=== PATIENT | male | born 1935 | race Caucasian/White ===

== ENCOUNTER 2016-02-26 13:58 | Emergency (ER) | payer OTHER ==
[~2016-02-26] VITALS: Ht 182.9 cm; Wt 106.6 kg
[~2016-02-26 13:58] MED LIST: <VITAMIN> A + D1 APP TOP; ACEPHEN650 MG PR; ACIDOPHILUS1 CAP PO; ALBUTEROL SULFAT3 M1 INH; ALBUTEROL2.5 MG/3 M INH; AMLODIPINE BESYL5 M1 PO; AMLODIPINE10 MG PO; ATORVASTATIN CA40 MG PO; AUGMENTIN 875-1 EACH PO; AUGMENTIN PO; BACTRIM DS 8001 TAB PO; COUMADIN6 M1 PO; CYCLOBENZAPRINE5 M2 PO; DEMADEX10 M1 PO; DEMADEX20 M1 PO; DILAUDID 4 MG TA4 MG PO; DSS100 MG PO; DULCOLAX10 MG PR; Desitin TOP; EDARBYCLOR 40 M1 TAB PO; ELIQUIS5 M1 PO; ELIQUIS5 MG PO; FERATAB300 MG PO; FERROUS SULFAT325 M3 PO; FLEET ENEMA 131 UNIT RC; FLOMAX(MONOGRA0.4 MG PO; FOLIC ACID 1 MG PO; FUROSEMIDE40 MG PO; GABAPENTIN300 M2 PO; GUAIFENESIN ER600 MG PO; KEFLEX500 M1 PO; KLOR-CON M2020 ME1 PO; LASIX20 MG PO; LASIX40 M1 PO; LEVAQUIN500 M1 PO; LOPRESSOR 25MG25 MG PO; LOPRESSOR50 MG PO; LUBRIDERM DAIL177 ML TOP; METOPROLOL TARTRATE PO; MILK OF MAGNESI30 ML PO; MIRALAX17 GM PO; MS CONTIN30 MG PO; MYSOLINE50 M1 PO; NEURONTIN300 MG PO; NORVASC 5MG TAB5 MG PO; OMEPRAZOLE; OXYCODONE5 MG PO; OXYCONTIN30 MG PO; PERCOCET 325 MG1 TA2 PO; POTASSIUM CHLORIDE 20 MEQ; PREDNISONE10 M2 PO; PRILOSEC OTC20 M1 PO; PROS5 PO; SENOKOT8.6 M1 PO; SPIRIVA18 MCG INH; SYMBICORT 16010.2 GM; SYMBICORT 16010.2 GM INH; TORSEMIDE 10 MG; TRAMADOL HCL50 M1 PO; TYLENOL PO; TYLENOL TAB 32325 MG PO; TYLENOL WITH C1 EACH PO; TYLENOL325 M1 PO; VALIUM2 M1 PO; VITAMIN C250 M1 PO; VYTORIN 10 MG-21 TAB PO; WARFARIN 5 MG; WARFARIN SODIUM5 M1 PO; XARELTO20 MG PO; ZINC SULFATE 2220 MG PO
--- NOTE | 2016-02-26 14:40 | ED NECK/BACK PAIN COMPLAINT ---
History of Present Illness General Chief Complaint: Low Back Pain/Injury Stated Complaint: INCREASED BACK PAIN Source: patient Exam Limitations: no limitations Vital Signs & Intake/Output Vital Signs & Intake/Output Vital Signs Date Time Temp Pulse Resp B/P Pulse O2 O2 Flow FiO2 Ox Delivery Rate 02/25 1648 97.8 70 18 114/76 97 Room Air 02/25 1401 97.2 63 20 156/93 94 Room Air Allergies Coded Allergies: sulfamethoxazole (From BACTRIM) (UNKNOWN 05/13/15) trimethoprim (From BACTRIM) (UNKNOWN 05/13/15) Reconcile Medications Acetaminophen (Tylenol) 325 MG TABLET 2 TAB PO Q4 HRS NEEDED PRN PAIN ( Reported) Amlodipine Besylate 5 MG TABLET 5 MG PO DAILY HIGH BLOOD PRESSURE Apixaban (Eliquis) 5 MG TABLET 1 TAB PO BID BLOOD THINNER (Reported) Atorvastatin Calcium (Lipitor) 40 MG TABLET 1 TAB PO DAILY CHOLESTEROL ( Reported) Budesonide/Formoterol Fumarate (Symbicort 160-4.5 Mcg Inhaler) 160 MCG-4.5 MCG/ ACTUATION HFA.AER.AD 2 PUF INH BID BREATHING PROBLEMS (Reported) Diazepam (Valium) 5 MG TABLET 1 TAB PO BIDP PRN muscle spasms Diazepam (Valium) 2 MG TABLET 1 TAB PO BID spasms Gabapentin 300 MG CAPSULE 1 CAP PO TID (Reported) Potassium Chloride (Klor-Con M20) 20 MEQ TAB.ER.PRT 1 TAB PO DAILY SUPPLEMENT (Reported) Primidone (Mysoline) 50 MG TABLET 1 TAB PO TID UNKNOWN (Reported) Tiotropium [place] (Spiriva) 18 MCG CAP.W.DEV 1 PUF INH DAILY copd Torsemide (Demadex) 20 MG TABLET 2 TAB PO EOD WATER PILL (Reported) Torsemide (Demadex) 10 MG TABLET 3 TAB PO EOD WATER PILL (Reported) Tramadol HCl (Ultram) 50 MG TABLET 1-2 TAB PO Q6P PRN PAIN Tramadol HCl 50 MG TABLET 1-2 TAB PO Q8P PRN pain Triage Note: BIBA FROM [facility], C/O R SIDED NECKCK PAIN AND STIFFNESS SINCE LAST NIGHT. STATES HE SLEPT IN HIS RECLINER ALL NIGHT. DENIES SOB OR DIFFICULTY SWALLOWING. Triage Nurses Notes Reviewed? yes HPI: 80-year-old male arrived by ambulance to room 8 for evaluation of right sided neck pain. He reports that the pain started last night with unknown context. He did sleep in his recliner last night and believes it could be related to that. He has been seen in the emergency department twice within the past few months for the same thing. He has been given tramadol and Valium for the pain. He describes the pain has a tightness in the right side of his neck like a spasm. He denies any head or back pain and he denies any chest or abdominal pain. (MARYANN BACA APRN) Past History Travel History Traveled to [place] past 21 day No Medical History Any Pertinent Medical History? 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 No (MARYANN BACA APRN) Review of Systems Review of Systems Constitutional: Reports: no symptoms. Eyes: Reports: no symptoms. Ears, Nose, Throat, Mouth: Reports: no symptoms. Respiratory: Reports: no symptoms. Cardiovascular: Reports: no symptoms. Gastrointestinal/Abdominal: Reports: no symptoms. Musculoskeletal: Reports: neck pain. Skin: Reports: no symptoms. Neurological/Psychological: Reports: no symptoms. All Other Systems: Reviewed and Negative (MARYANN BACA APRN) Physical Exam Physical Exam General Appearance: well developed/nourished, mild distress Head: atraumatic Eyes: Bilateral: PERRL, EOMI. Ears, Nose, Throat, Mouth: hearing grossly normal Neck: muscle spasm (right side) Respiratory: normal breath sounds Cardiovascular: regular rate/rhythm Gastrointestinal: soft, non-tender Back: normal inspection Extremities: normal range of motion Neurologic/Psych: awake, alert, oriented x 3, normal mood/affect Skin: intact, normal color, warm/dry (MARYANN BACA APRN) Progress Differential Diagnosis: myofascial strain, radiculopathy, cervical strain Plan of Care: Current Medications Sig/Iain Start time Last Medication Dose Stop Time Status Admin Diazepam 5 MG ONCE ONE 02/25 1445 UNVr (Valium) 02/25 1446 Ketorolac 30 MG ONCE ONE 02/25 1445 UNVr Tromethamine 02/25 1446 (Toradol) Comments: Patient feels much better after Toradol and Valium. Instructed that he needs to follow up with primary care provider for continued muscle strain in his neck. (MARYANN BACA APRN) Departure Departure Time of Disposition: 1650 Disposition: HOME OR SELF CARE Condition: Stable Clinical Impression Primary Impression: Cervical strain Qualifiers: Encounter type: subsequent encounter Qualified Code: S16.1XXD - Strain of muscle, fascia and tendon at neck level, subsequent encounter Referrals: NICOLE HILLS,CATRACHITA Galvin (PCP/Family) Additional Instructions: Please follow up with Dr. Higuera for this continued cervical strain that you have been having over the past few months. Tramadol twice a day has needed for pain and Valium 3 times a day has needed for muscle spasm of the neck. Please do not drive taking this medication. Be careful because it can make him very drowsy. Departure Forms: Customer Survey General Discharge Information Prescriptions: Current Visit Scripts Diazepam (Valium) 1 TAB PO BIDP PRN muscle spasms #14 TAB Tramadol HCl (Ultram) 1-2 TAB PO Q6P PRN PAIN #20 TAB (MARYANN BACA APRN)
[2016-02-26] MEDS ORDERED: VALIUM5 M2 PO ×2 (16:43→17:08)
[2016-02-26] MEDS ORDERED: TRAMADOL HCL50 M1 PO (16:43)
[2016-02-26 16:48] VITALS: BP 114/76
[2016-02-26] MEDS ORDERED: ULTRAM50 M1 PO (17:08)
== END 2016-02-26 17:11 ==
LOC: ERH 13:58
DX: S16.1XXA Strain of muscle, fascia and tendon at neck level, initial encounter (principal); X58.XXXA Exposure to other specified factors, initial encounter
CPT/HCPCS: 96372; J1885; J3360

== ENCOUNTER 2016-08-07 09:45 | Inpatient (IN) | payer OTHER ==
[~2016-08-07] VITALS: Ht 180.3 cm; Wt 105.7 kg
[~2016-08-07 09:45] MED LIST changes: -ATORVASTATIN CA40 MG PO; +LIPITOR40 M1 PO; +ULTRAM50 M1 PO; +VALIUM5 M2 PO
--- NOTE | 2016-08-07 09:55 | NUR ---
PT TO ED FOR ?ADMISSION FOR A UTI. PT HAS A PRESCRIPTION FROM DR RIVERA FOR PT TO BE ADMITTED FOR RECURRENT UTI'S. PT STATES HE HAS BURNING WITH URINATION. DENIES ANY PAIN. AFEBRILE IN TRIAGE. STATES HAS BEEN GOING FOR ABOUT X1 MONTH.
--- NOTE | 2016-08-07 11:12 | ED GI/GU/ABDOMINAL COMPLAINT ---
History of Present Illness General Chief Complaint: Male Genitourinary Problems Stated Complaint: UTI Source: patient, family, old records Exam Limitations: no limitations Allergies Coded Allergies: sulfamethoxazole (From BACTRIM) (UNKNOWN 05/13/15) trimethoprim (From BACTRIM) (UNKNOWN 05/13/15) Reconcile Medications Acetaminophen (Tylenol) 325 MG TABLET 2 TAB PO Q4 HRS NEEDED PRN PAIN ( Reported) Amlodipine Besylate 5 MG TABLET 5 MG PO DAILY HIGH BLOOD PRESSURE Apixaban (Eliquis) 5 MG TABLET 1 TAB PO BID BLOOD THINNER (Reported) Atorvastatin Calcium (Lipitor) 40 MG TABLET 1 TAB PO DAILY CHOLESTEROL ( Reported) Budesonide/Formoterol Fumarate (Symbicort 160-4.5 Mcg Inhaler) 160 MCG-4.5 MCG/ ACTUATION HFA.AER.AD 2 PUF INH BID BREATHING PROBLEMS (Reported) Cetirizine HCl (Zyrtec) 10 MG TABLET 1 TAB PO DAILY ALLERGIES (Reported) Docusate Sodium (Colace) 100 MG CAPSULE 1 CAP PO BID CONSTIPATION (Reported) Gabapentin 300 MG CAPSULE 1 CAP PO TID (Reported) Potassium Chloride (Klor-Con M20) 20 MEQ TAB.ER.PRT 1 TAB PO DAILY SUPPLEMENT (Reported) Primidone (Mysoline) 50 MG TABLET 1 TAB PO TID UNKNOWN (Reported) Tiotropium [place] (Spiriva) 18 MCG CAP.W.DEV 1 PUF INH DAILY copd Torsemide (Demadex) 20 MG TABLET 2 TAB PO DAILY WATER PILL (Reported) Tramadol HCl 50 MG TABLET 1 TAB PO BID PAIN (Reported) Triage Note: PT TO ED FOR ?ADMISSION FOR A UTI. PT HAS A PRESCRIPTION FROM DR RIVERA FOR PT TO BE ADMITTED FOR RECURRENT UTI'S. PT STATES HE HAS BURNING WITH URINATION. DENIES ANY PAIN. AFEBRILE IN TRIAGE. STATES HAS BEEN GOING FOR ABOUT X1 MONTH. Triage Nurses Notes Reviewed? yes Onset: Abrupt Duration: week(s): (4), constant Timing: recent history Quality/Severity: burning Severity Numbers: 6 Location: urethral Radiation: no radiation Activities at Onset: none Prior Abdominal Problems: none No Modifying Factors: none Associated Symptoms: denies HPI: This is an 81-year-old male with history of A. fib presents sent in by his primary care physician for admission. The patient states that he's had dysuria frequency for the past 1 month and was being treated outpatient for pseudomonas UTI. He saw Dr. Flores last week as well he is not currently on any by mouth antibiotics. No fever no chills no abdominal pain nausea vomiting diarrhea. No history of similar symptoms in the past. No hematuria. After speaking with infectious disease his primary care physician referred him to the ER for admission for IV antibiotics. No modifying factors or associated symptoms. (ELKIN ANDRADE) Vital Signs & Intake/Output Vital Signs & Intake/Output Vital Signs Date Time Temp Pulse Resp B/P B/P Pulse O2 O2 Flow FiO2 Mean Ox Delivery Rate 08/07 1627 97.2 80 18 179/89 96 Room Air 08/07 1247 66 18 159/99 92 Room Air 08/07 1235 Room Air 08/07 0954 97.0 76 16 128/75 94 Room Air Past History Travel History Traveled to [place] past 21 day No Medical History Any Pertinent Medical History? 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 No (ELKIN ANDRADE) Review of Systems Review of Systems Constitutional: Reports: see HPI. All Other Systems: Reviewed and Negative Comments Review of systems: See HPI, All other systems negative. Constitutional, no chills no fever, no malais HEENT: No visual changes no sore throat no congestion Cardiovascular: No chest pain , no palpitation Skin: no rashes, no change in skin Respiratory: No dyspnea no cough no sputum GI: No nausea no vomiting, no diarrhea, no bloating/constipation : dysuria No hematuria, frequency, no discharge Muscle skeletal: No joint pain, no back pain, no neck pain, Neurologic: No numbness no headache Psych: No stress. Heme/endocrine: No bruising Immunology: No lymphadenopathy (ELKIN ANDRADE) Physical Exam Physical Exam General Appearance: well developed/nourished, no apparent distress, alert, awake Gastrointestinal: normal bowel sounds, soft Comments: Well-developed well-nourished person in no acute distress HEENT: Normal EENT exam; PERRL, EOMI HEAD is atraumatic. moist mucous membranes. Neck: Supple, normal range of motion Back: Nontender, no CVA tenderness. Full range of motion Cardiovascular: Regular rate and rhythms no murmurs rubs Respiratory: No respiratory distress. Patient speaking in full complete sentences. Breath sounds clear to auscultation bilaterally: NO W/R/R Abdomen: Soft, nontender nondistended, no appreciable organomegaly. Normal bowel sounds. No rebound/guarding, No appreciable enlargement of the abdominal aorta Extremity: No edema, full range of motion of extremities Neuro: Alert oriented x3, motor sensory normal, There were no obvious focal neurologic abnormalities. Skin: No appreciable rash on exposed skin, skin is warm and dry. Psych: Mood and affect is normal, memory and judgment is normal. Core Measures ACS in differential dx? No Severe Sepsis Present: No Septic Shock Present: No (ELKIN ANDRADE) Progress Differential Diagnosis: biliary colic, bowel obstruction Initial ED EKG: none (ELKIN ANDRADE) Plan of Care: Orders Procedure Date/time Status CBC WITHOUT DIFFERENTIAL 08/08 0600 Active BASIC ELECTROLYTES PLUS BUN&CR 08/08 0600 Active Regular Diet 08/07 L Complete Regular Diet 08/07 D Active Pathway - chart 08/07 1354 Active Misc Message 08/07 1352 Active ED Holding Orders 08/07 1352 Active Vital Signs 08/07 1352 Active Code Status 08/07 1352 Active TRC EVALUATION (GEN) 08/07 1351 Active Pathway - chart 08/07 1351 Active House Staff 08/07 1351 Active Code Status 08/07 1351 Complete Patient Data 08/07 1329 Active Admit to inpatient 08/07 1326 Active Intake & Output 08/07 1234 Active Saline Lock 08/07 1212 Active BLOOD CULTURE 08/07 1118 Active CULTURE,URINE 08/07 1111 Active URINALYSIS 08/07 1111 Complete LACTIC ACID 08/07 1111 Complete COMPREHENSIVE METABOLIC PANEL 08/07 1111 Complete CBC WITHOUT DIFFERENTIAL 08/07 1111 Complete TRC EVALUATION (GEN) 08/07 UNK Active VTE Mechanical Prophylaxis 08/07 UNK Active Current Medications Sig/Iain Start time Last Medication Dose Stop Time Status Admin Amlodipine Besylate 5 MG DAILY 08/08 1000 UNVr (Norvasc) Atorvastatin Calcium 40 MG DAILY 08/08 1000 UNVr (Lipitor) Apixaban 5 MG BID 08/070 UNVr (Eliquis) Budesonide/ 2 PUF BID 08/07 220 UNVr Formoterol Fumarate (Symbicort) Docusate Sodium 100 MG BID 08/07 2199 UNVr (Colace) Primidone 50 MG TID 08/07 162 UNVr (Mysoline 50MG. Tablet) Torsemide 40 MG DAILY 08/07 162 UNVr (Demadex 20 MG) Gabapentin 300 MG TID 08/07 162 UNVr (Neurontin) Potassium Chloride 20 MEQ DAILY 08/07 162 UNVr (K-Dur) Ceftazidime 1,000 MG IQ8 08/07 1600 AC (Fortaz) Acetaminophen 650 MG Q6P PRN 08/07 1400 AC (Tylenol) Morphine Sulfate 2 MG Q6PRN PRN 08/07 1400 AC (Morphine) Oxycodone/ 1 TAB Q6P PRN 08/07 1400 AC Acetaminophen (Percocet) Laboratory Tests 08/07/16 1411: Lactic Acid Cancelled 08/07/16 1230: Anion Gap 11, Estimated GFR > 60, BUN/Creatinine Ratio 24.4, Glucose 105 H, Lactic Acid 1.7, Calcium 9.6, Total Bilirubin 0.4, AST 30, ALT 41, Alkaline Phosphatase 126, Total Protein 7.4, Albumin 4.5, Globulin 2.9, Albumin/Globulin Ratio 1.6, CBC w Diff NO MAN DIFF REQ, RBC 4.89, MCV 88.0, MCH 28.8, RDW 15.6 H , MPV 9.2, Gran % 74.6, Lymphocytes % 13.4 L, Monocytes % 9.8 H, Eosinophils % 1.7, Basophils % 0.5, Absolute Granulocytes 7.2 H, Absolute Lymphocytes 1.3, Absolute Monocytes 0.9 H, Absolute Eosinophils 0.2, Absolute Basophils 0, PUBS MCHC 32.7 L 08/07/16 1135: Urinalysis LIGHT H, Urine Color YEL, Urine Clarity HAZY H, Urine pH 7.0, Ur Specific [place] 1.010, Urine Protein TRACE H, Urine Ketones NEG, Urine Nitrite NEG, Urine Bilirubin NEG, Urine Urobilinogen 0.2, Ur Leukocyte Esterase MOD H, Ur Microscopic SEDIMENT EXAMINED, Urine RBC RARE, Urine WBC 25-50 H, Ur Epithelial Cells RARE, Urine Bacteria RARE H, Urine Mucus RARE, Urine Hemoglobin NEG, Urine Glucose NEG Microbiology 08/07 1230 BLOOD: Blood Culture - RECD 08/07 1220 BLOOD: Blood Culture - RECD 08/07 1135 URINE ROUT: Urine Culture - RECD Labs ordered old records reviewed. case d/w dr winter Old records including previous urine culture sensitivities were reviewed call placed to dr rivera I spoke with Dr. rivera agreeswith plan and iv ceftaz, will admit to gen [facility] I spoke with the [facility] his results need for admission which he is in agreement with (ELKIN ANDRADE) Departure Departure Time of Disposition: 2 Disposition: STILL A PATIENT Condition: Stable Clinical Impression Primary Impression: UTI (urinary tract infection) Referrals: CATRACHITA RIVERA MD (PCP/Family) Departure Forms: Customer Survey General Discharge Information Admission Note Spoke With: CATRACHITA RIVERA MD Documentation of Exam: Documentation of any treatments & extenuating circumstances including Concerns Regarding Discharge (functional status, medication knowledge or non-compliance, living conditions, etc.) that warrant an admission rather than observation: IV antibiotics patient has failed outpatient therapy history of recurrent UTIs in the past infectious disease possible urology consult premature discharge would BE medically harmful (ELKIN ANDRADE) PA/TIE HACKER Co-Sign Statement Statement: ED Attending supervision documentation- [x] I saw and evaluated the patient. I have also reviewed all the pertinent lab results and diagnostic results. I agree with the findings and the plan of care as documented in the PA's/TIE HACKER's documentation. [] I have reviewed the ED Record and agree with the PA's/TIE HACKER's documentation. [] Additions or exceptions (if any) to the PAs/TIE HACKER's note and plan are summarized below: [] (ANITRA HILLS,RICK Casey)
[2016-08-07] MEDS ORDERED: COLACE100 M1 PO (11:14)
[2016-08-07] MEDS ORDERED: ZYRTEC10 M3 PO (11:15)
[2016-08-07] MEDS ORDERED: TRAMADOL HCL50 M1 PO (11:16)
--- NOTE | 2016-08-07 11:57 | NUR ---
IV EST #20 RF
--- NOTE | 2016-08-07 12:33 | NUR ---
LABS DRAWN AND SENT TO THE LAB
[2016-08-07 12:40] LABS: ABSOLUTE BASOPHIL COUNT 0 /CUMM (0.0-0.2); ABSOLUTE EOSINOPHIL COUNT 0.2 /CUMM (0.0-0.7); ABSOLUTE GRANULOCYTE CT 7.2 /CUMM (1.4-6.5); ABSOLUTE LYMPH COUNT 1.3 /CUMM (1.2-3.4); ABSOLUTE MONOCYTE COUNT 0.9 /CUMM (0.10-0.60); BASOPHIL % 0.5 % (0.0-2.0); EOSINOPHIL % 1.7 % (0-5); GRANULOCYTE % 74.6 % (42.2-75.2); HEMATOCRIT 43.1 % (42-52); MEAN CORPUSCULAR HGB 28.8 PG (27.0-31.0); MEAN CORPUSCULAR HGB CONC 32.7 G/DL (33.0-37.0); MEAN PLATELET VOLUME 9.2 FL (7.4-10.4); PLATELET COUNT 191 /CUMM (130-400); RBC DISTRIBUTION WIDTH 15.6 % (11.5-14.5); RED BLOOD CELL CT 4.89 /CUMM (4.70-6.10); WHITE BLOOD CELL COUNT 9.6 /CUMM (4.8-10.8)
--- NOTE | 2016-08-07 13:40 | History & Physical ---
See Addendum TIFFANY HILLS,MONALISA 08/07/16 2423: General Information and HPI MD Statement: I have seen and personally examined CHANTAL LI and documented this H&P. The patient is a 81 year old M who was sent in by primary care physician for urinary tract infections requiring IV antibiotics. Source of Information: patient Exam Limitations: no limitations History of Present Illness: 81-year-old male with past medical history of BPH, dCHF, atrial fibrillation on Eliquis, hypertension, peripheral vascular disease, hyperlipidemia, neuropathy, chronic edema, right posterior lobe lung nodule, was sent in by his primary care physician Catrachita Rivera MD for UTI requiring IV antibiotics. Patient is a resident of [facility], an assisted-living facility, and gets hleps for daily activities. He has been having burning micturition and frequency, since one month, for which he has been seeing his primary care physician, and was being observed off antibiotics, as he was never febrile, and did not worsen. In his visit today with the PCP he was sent to the ED to be evaluated and managed, possibly requiring IV antibiotics like Ceftazidime to which the Pseudomonas was sensitive to in the past. Review of symptoms is negative otherwise. Allergies/Medications Allergies: Coded Allergies: sulfamethoxazole (From BACTRIM) (UNKNOWN 05/13/15) trimethoprim (From BACTRIM) (UNKNOWN 05/13/15) Home Med list Acetaminophen (Tylenol) 325 MG TABLET 2 TAB PO Q4 HRS NEEDED PRN PAIN ( Reported) Amlodipine Besylate 5 MG TABLET 5 MG PO DAILY HIGH BLOOD PRESSURE Apixaban (Eliquis) 5 MG TABLET 1 TAB PO BID BLOOD THINNER (Reported) Atorvastatin Calcium (Lipitor) 40 MG TABLET 1 TAB PO DAILY CHOLESTEROL ( Reported) Budesonide/Formoterol Fumarate (Symbicort 160-4.5 Mcg Inhaler) 160 MCG-4.5 MCG/ ACTUATION HFA.AER.AD 2 PUF INH BID BREATHING PROBLEMS (Reported) Cetirizine HCl (Zyrtec) 10 MG TABLET 1 TAB PO DAILY ALLERGIES (Reported) Docusate Sodium (Colace) 100 MG CAPSULE 1 CAP PO BID CONSTIPATION (Reported) Gabapentin 300 MG CAPSULE 1 CAP PO TID (Reported) Potassium Chloride (Klor-Con M20) 20 MEQ TAB.ER.PRT 1 TAB PO DAILY SUPPLEMENT (Reported) Primidone (Mysoline) 50 MG TABLET 1 TAB PO TID UNKNOWN (Reported) Tiotropium [place] (Spiriva) 18 MCG CAP.W.DEV 1 PUF INH DAILY copd Torsemide (Demadex) 20 MG TABLET 2 TAB PO DAILY WATER PILL (Reported) Tramadol HCl 50 MG TABLET 1 TAB PO BID PAIN (Reported) Past History Travel History Traveled to [place] past 21 day No Medical History Neurological: TREMORS EENT: NONE Cardiovascular: AFIB, CHF, hypertension, hyperlipidemia, PVD Respiratory: bronchitis, pneumonia Gastrointestinal: NONE, constipation Hepatic: NONE Renal: UTI Musculoskeletal: NUMBNESS TO BOTH LOWER LEGS RECENT EDEMA TO LEGS Psychiatric: NONE Endocrine: NONE Blood Disorders: anemia Cancer(s): NONE TECHNOLOGY DEVELOPMENT INTERN/Reproductive: NONE History of MRSA: Yes History of VRE: Yes History of CDIFF: No Surgical History Surgical History: LLE SKIN GRAFT Past Family/Social History Family History Relations & Conditions if any MOTHER FH: HTN (hypertension) FATHER FH: HTN (hypertension) Psychosocial History Where do you live? Extended Care Facility Who Do You Live With? self Services at Home: Home Health Aide, Nursing Primary Language: Belgian Smoking Status: Former Smoker (for 10 yr, 1 pk per week, quit) Functional Ability ADLs Needs Assist: dressing, eating, toileting, bathing. IADLs Needs Assist: shopping, housework, finances, food prep, telephone, transportation, medication admin. Review of Systems Review of Systems Constitutional: Reports: see HPI. EENTM: Reports: no symptoms. Cardiovascular: Reports: no symptoms. Respiratory: Reports: no symptoms. GI: Reports: no symptoms. Genitourinary: Reports: see HPI, dysuria, frequency. Denies: hematuria, hesitation, nocturia, pain. Musculoskeletal: Reports: no symptoms. Skin: Reports: no symptoms. Neurological/Psychological: Reports: no symptoms. Hematologic/Endocrine: Reports: no symptoms. All Other Systems: Reviewed and Negative Exam & Diagnostic Data Last 24 Hrs of Vital Signs/I&O Vital Signs Date Time Temp Pulse Resp B/P B/P Pulse O2 O2 Flow FiO2 Mean Ox Delivery Rate 08/07 1247 66 18 159/99 92 Room Air 08/07 1235 Room Air 08/07 0954 97.0 76 16 128/75 94 Room Air Physical Exam General Appearance Alert, Oriented X3, Cooperative, No Acute Distress Skin No Rashes, No Breakdown, No Significant Lesion Skin Temp/Moisture Exam: Warm/Dry Sepsis Skin Exam (color): Normal for Ethnicity HEENT Atraumatic, PERRLA Neck Supple, No JVD, No thryomegaly Lymphatic Axillary nl, Cervical nl Cardiovascular Regular Rate, No Murmurs Lungs Clear to Auscultation, Normal Air Movement Abdomen Normal Bowel Sounds, Soft, No Tenderness Neurological Normal Gait, Normal Speech, Strength at 5/5 X4 Ext, Normal Tone, Sensation Intact Extremities No Clubbing, No Cyanosis, No Edema, Normal Pulses, No Tenderness/ Swelling Vascular Normal Pulses, Pulses Symmetrical Sepsis Peripheral Pulse Location: Radial Sepsis Peripheral Pulse Exam: Normal Sepsis Cap Refill Exam: <2 Sec Last 24 Hrs of Labs/Mc: Laboratory Tests 08/07/16 1230: Anion Gap 11, Estimated GFR > 60, BUN/Creatinine Ratio 24.4, Glucose 105 H, Lactic Acid 1.7, Calcium 9.6, Total Bilirubin 0.4, AST 30, ALT 41, Alkaline Phosphatase 126, Total Protein 7.4, Albumin 4.5, Globulin 2.9, Albumin/Globulin Ratio 1.6, CBC w Diff NO MAN DIFF REQ, RBC 4.89, MCV 88.0, MCH 28.8, RDW 15.6 H , MPV 9.2, Gran % 74.6, Lymphocytes % 13.4 L, Monocytes % 9.8 H, Eosinophils % 1.7, Basophils % 0.5, Absolute Granulocytes 7.2 H, Absolute Lymphocytes 1.3, Absolute Monocytes 0.9 H, Absolute Eosinophils 0.2, Absolute Basophils 0, PUBS MCHC 32.7 L 08/07/16 1135: Urinalysis LIGHT H, Urine Color YEL, Urine Clarity HAZY H, Urine pH 7.0, Ur Specific [place] 1.010, Urine Protein TRACE H, Urine Ketones NEG, Urine Nitrite NEG, Urine Bilirubin NEG, Urine Urobilinogen 0.2, Ur Leukocyte Esterase MOD H, Ur Microscopic SEDIMENT EXAMINED, Urine RBC RARE, Urine WBC 25-50 H, Ur Epithelial Cells RARE, Urine Bacteria RARE H, Urine Mucus RARE, Urine Hemoglobin NEG, Urine Glucose NEG Microbiology 08/07 1230 BLOOD: Blood Culture - RECD 08/07 1220 BLOOD: Blood Culture - RECD 08/07 1135 URINE ROUT: Urine Culture - RECD Diagnostic Data EKG Results - Assessment/Plan Assessment: 81-year-old male with past medical history of BPH, dCHF, atrial fibrillation on Eliquis, hypertension, peripheral vascular disease, hyperlipidemia, neuropathy, chronic edema, right posterior lobe lung nodule, was sent in by his primary care physician Catrachita Rivera MD for UTI requiring IV antibiotics. He is being admitted in the general medical floor for the following issues: #Urinary tract infection Patient has a long standing history (1 month) of intermittant urinary tract infections, which has grown Pseudomonas aeruginosa in the past, senstitive to Ceftazidime. This requires IV route of administratration, thus will admit the patient to general medical floor for uncomplicated UTI, pending urine culture. IV Ceftazidime 1gm q8h for now. #Atrial fibrillation, rate comtrolled Continue home medication of betablocker and Eliquis #HFpEF, dCHF Continue cardiac meds from home as noted #HLD Continue statin #HTN Continue betablocker and home meds of trsemide #Essential tremor, controlled Continue Primidone #Neuropathy Continue Gabapentin #BPH Continue Finasteride, and Tamsulosin #Diet: Heart healthy #DVT ppx: Eliquis #Code status: Full code As Ranked By This Provider Problem List: 1. UTI (urinary tract infection) Core Measures/Miscellaneous Acute Coronary Syndrome ACS Diagnosis: No Cerebrovascular Accident CVA/TIA Diagnosis: No Congestive Heart Failure CHF Diagnosis: No VTE (View Protocol) VTE Risk Factors: Age > 40, Obesity No [facility] prophylaxis d/t: No contraindications No VTE Pharm Prophylaxis d/t: Renal impairment VTE Diagnosis: No VTE Type: NONE VTE Confirmed by (Test): NONE Sepsis (View Protocol) Severe Sepsis Present: No Septic Shock Septic Shock Present: No Miscellaneous Documentation Attending Case Discussed With: TEOFILO ABRAHAM MD Primary Care Physician: CATRACHITA RIVERA MD Patient sees these Specialists Internal Medicine Level of Patient Care: General Medicine MARY LOU MCELROY 08/07/16 1559: Resident Review Statement Resident Statement: examined this patient, discussed with buying intern, agreed with buying intern, discussed with family, reviewed EMR data (avail), discussed with nursing , discussed with case mgmt, reviewed images, amended to note Other Findings: 81-year-old gentleman 81-year-old gentleman was sent to emergency room to be admitted for urinary tract infection. Mr. Bharat Meier resident of [facility], presented to the emergency room complaining of one- month of intermittent dysuria. Patient has Hx of multiple UTIs w/ P. Aeruginosa. He reports ferquency, but denies fever, rigors, abdominal pain, nocturia, urinary retention and hematuria. He was observed off Abx for 1 month with any improvement of his symptoms (mainly intermittent dysuria) nor without worsening of those symptoms. He contacted Dr. Rivera, his PCP, and was sent to ED for IV ABx treatment. ROS: negative, Vs: normal, Ph/ex: WNL. Lab: wbc:9.6 no left shif, no bandemia, LA: 1.7, H&H: 14.1/43.1, PLT: 191, Na 140, K 4, Hco3 31, 22 bun and Cr 0.9. U/A: WBC: 25-50, L.estrase mod+. Urine Cx: pending. Assessment 81 years old admitted for uncomplicated UTI with Hx of multiple episodes of UTI with P.Aeroginosa. Plan -UTI * admit to * IV ceftazidime 1000 mg q8h * follow urine Cx and Blood Cx results -Bilateral lower extremtiy edema w/ HFpEf >65% and RV moderate HTN. -Atrial fibrillation, rate controlled. * Continue rate control with metoprolol at home dosage. * Continue anticoagulation with Apixaban -hyperlipidemia * Continue home medication of atorvastatin 40 mg daily by mouth. - hypertension. * Continue home regimen. * Continue torsemide. - essential tremor * continue home medication of primidone. * Patient does not have any tremors right now. -neuropathy. * Continue gabapentin 300 mg 3 times a day at his home dosage. -BPH * Continue finasteride and Flomax at home dosage. Full code DVT prophylaxis with apixaban Heart healthy diet Mild pain pathway with Alonso SWEENEY MD,[facility] 08/08/16 0922: Attending MD Review Statement Attending Statement Attending MD Statement: examined this patient, discuss w/resident/PA/TABLE SETTER, agreed w/resident/PA/TABLE SETTER, reviewed EMR data (avail)
--- NOTE | 2016-08-07 14:01 | NUR ---
PT MEDICATED PER EMAR WITH FORTAZ
--- NOTE | 2016-08-07 14:01 | NUR ---
HOUSE STAFF AT BEDSIDE FOR EVALUAITON
--- NOTE | 2016-08-07 16:00 | NUR ---
ZENAIDAT GIVEN FOOD TRAY
--- NOTE | 2016-08-07 16:16 | NUR ---
PT ASSIGNED TO ROOM 233 BED 1
--- NOTE | 2016-08-07 16:21 | NUR ---
REPORT GIVEN TO JOSHUA
[2016-08-07 17:05] VITALS: BP 122/80
--- NOTE | 2016-08-07 17:24 | NUR ---
PT ARRIVED TO FLOOR AT 1650 VIA WHEELCHAIR FROM ED. PT AMBULATORY TO BED WITH MINIMAL ASSISTANCE. PT A/V/OX3. ON RA. LUNGS CLEAR. SKIN INTACT. PT C/O PAIN 3/10 TO NECK, MEDICATED PER EMAR WITH TYLENOL. PT C/O BURINING UPON URINATION. #20 RFA FLUSHING EASILY. NO HX OF FALLS, FALL SCORE 5- PRECAUTIONS MAINTAINED, PT EDUCATED ON USE OF CALL AYOUB AND FALL PRECAUTIONS. ORDERED DINNER. OFFERS NO COMPLAINTS. WILL CONTINUE TO MONITOR.
[2016-08-07 22:42] VITALS: BP 140/70
[2016-08-08 07:00] VITALS: BP 132/72
--- NOTE | 2016-08-08 07:14 | PN- Housestaff ---
Subjective Follow-up For: UTI Complaints: no complaints Subjective: Pt followed up and examined by me today. He is resting comfortably in his recliner, not in distress, does not offer any complaints. Vitals have been stable overnight, no overnight issues reported. Review of Systems Constitutional: Reports: no symptoms. Objective Last 24 Hrs of Vital Signs/I&O Vital Signs Date Time Temp Pulse Resp B/P B/P Pulse O2 O2 Flow FiO2 Mean Ox Delivery Rate 08/08 2223 97.8 68 20 128/72 96 Room Air 08/08 1414 98.0 70 20 130/77 98 08/08 0755 130/70 08/08 0700 97.2 72 20 132/72 93 Room Air Intake & Output 08/09 0800 08/09 0000 08/08 1600 Intake Total 300 1350 Output Total 350 Balance 300 1000 Intake, IV 20 Intake, Oral 280 1350 Number 1 Bowel Movements Output, Urine 350 Physical Exam General Appearance: Alert, Oriented X3, Cooperative, No Acute Distress Other Physical Findings: Skin No Rashes, No Breakdown, No Significant Lesion Skin Temp/Moisture Exam: Warm/Dry HEENT Atraumatic, PERRLA Neck Supple, No JVD, No thryomegaly Lymphatic Axillary nl, Cervical nl Cardiovascular Regular Rate, No Murmurs Lungs Clear to Auscultation, Normal Air Movement Abdomen Normal Bowel Sounds, Soft, No Tenderness Neurological Normal Gait, Normal Speech, Strength at 5/5 X4 Ext, Normal Tone, Sensation Intact Extremities No Clubbing, No Cyanosis, No Edema, Normal Pulses, No Tenderness/ Swelling Vascular Normal Pulses, Pulses Symmetrical Current Medications: Current Medications Sig/Iain Start time Last Medication Dose Route Stop Time Status Admin Acetaminophen 650 MG .STK-MED ONE 08/08 0913 DC PO 08/08 0914 Acetaminophen 650 MG Q6P PRN 08/07 1400 AC 08/08 PO 09 Amlodipine Besylate 5 MG DAILY 08/08 1000 AC 08/08 PO 075 Apixaban 5 MG BID 08/07 2199 AC 08/08 PO 205 Atorvastatin Calcium 40 MG DAILY 08/08 1000 AC 08/08 PO 075 Budesonide/ 2 PUF BID 08/07 2199 AC 08/08 Formoterol Fumarate INH 205 Ceftazidime 1,000 MG IQ8 08/07 1600 AC 08/08 IV 1613 Docusate Sodium 100 MG BID 08/07 2199 AC 08/08 PO 2052 Gabapentin 300 MG TID 08/07 162 AC 08/08 PO 2052 Morphine Sulfate 2 MG Q6PRN PRN 08/07 1400 AC IV Oxycodone/ 1 TAB Q6P PRN 08/07 1400 AC Acetaminophen PO Potassium Chloride 20 MEQ DAILY 08/07 162 AC 08/08 PO 755 Primidone 50 MG TID 08/07 162 AC 08/08 PO 2052 Torsemide 40 MG DAILY 08/08 1623 AC 08/08 PO 075 Last 24 Hrs of Lab/Mc Results Last 24 Hrs of Labs/Mics: Laboratory Tests 08/08/16 0730: Anion Gap 9, Estimated GFR > 60, BUN/Creatinine Ratio 23.0, CBC w Diff NO MAN DIFF REQ, RBC 4.68 L, MCV 88.0, MCH 28.5, RDW 15.9 H, MPV 9.6, Gran % 75.8 H, Lymphocytes % 11.4 L, Monocytes % 10.5 H, Eosinophils % 2.0, Basophils % 0.3, Absolute Granulocytes 6.7 H, Absolute Lymphocytes 1.0 L, Absolute Monocytes 0.9 H, Absolute Eosinophils 0.2, Absolute Basophils 0, PUBS MCHC 32.3 L Assessment/Plan Assessment: 81-year-old male with past medical history of BPH, dCHF, atrial fibrillation on Eliquis, hypertension, peripheral vascular disease, hyperlipidemia, neuropathy, chronic edema, right posterior lobe lung nodule, was sent in by his primary care physician Pavan Higuera MD for UTI requiring IV antibiotics. He is being managed in the general medical floor for the following issues: #Urinary tract infection Patient has a long standing history (1 month) of intermittant urinary tract infections, which has grown Pseudomonas aeruginosa in the past, senstitive to Ceftazidime. This requires IV route of administratration, thus the admission. Continue regular monitoring, and IV abx, pending urine culture. IV Ceftazidime 1gm q8h for now. #Atrial fibrillation, rate comtrolled Continue home medication of betablocker and Eliquis #HFpEF, dCHF Continue cardiac meds from home as noted #HLD Continue statin #HTN Continue betablocker and home meds of trsemide #Essential tremor, controlled Continue Primidone #Neuropathy Continue Gabapentin #BPH Continue Finasteride, and Tamsulosin #Diet: Heart healthy #DVT ppx: Eliquis #Code status: Full code Problem List: 1. UTI (urinary tract infection) Pain Ratin Pain Location: - Pain Goal: Pain 4 or less Pain Plan: prn Tomorrow's Labs & Rationales: -
[2016-08-08 08:31] LABS: ABSOLUTE BASOPHIL COUNT 0 /CUMM (0.0-0.2); ABSOLUTE EOSINOPHIL COUNT 0.2 /CUMM (0.0-0.7); ABSOLUTE GRANULOCYTE CT 6.7 /CUMM (1.4-6.5); ABSOLUTE MONOCYTE COUNT 0.9 /CUMM (0.10-0.60); BASOPHIL % 0.3 % (0.0-2.0); GRANULOCYTE % 75.8 % (42.2-75.2); HEMATOCRIT 41.2 % (42-52); MEAN CORPUSCULAR HGB 28.5 PG (27.0-31.0); MEAN CORPUSCULAR HGB CONC 32.3 G/DL (33.0-37.0); MEAN PLATELET VOLUME 9.6 FL (7.4-10.4); PLATELET COUNT 184 /CUMM (130-400); RBC DISTRIBUTION WIDTH 15.9 % (11.5-14.5); RED BLOOD CELL CT 4.68 /CUMM (4.70-6.10); WHITE BLOOD CELL COUNT 8.9 /CUMM (4.8-10.8)
--- NOTE | 2016-08-08 09:18 | Admission Certification ---
Admission Certification Certification Statement - As attending physician, I certify that at the time of - admission, based on clinical presentation, severity of - symptoms, need for further diagnostic testing and - therapeutic interventions, and risk of adverse outcomes - without in-hospital treatment, in my clinical assessment, - this patient requires an acute hospital stay for a minimum - of two nights or longer. I have also considered psychsocial - factors such as support system, advanced age, financial - issues, cognitive issues, and failed out-patient treatments, - past re-admission history, safety of patient, and lack of - compliance as applicable. Specific rationale supporting this admission is: UTI
--- NOTE | 2016-08-08 09:22 | PN- Att Addend ---
Attending Addendum Attending Brief Note Patient reports feeling better this morning. He has burning with micturition. General Appearance: Alert, No Acute Distress Skin: Grossly normal HEENT: PEERLA Neck: Supple, No JVD Cardiovascular: Irregular rhythm Abdomen: Normal Bowel Sounds, Soft, No Tenderness Neurological: Normal Speech, Strength at 5/5 X4 Ext, Cranial Nerves 3-12 NL, Reflexes 2+ Extremities: No Clubbing, No Cyanosis, No Edema Vascular: Normal Pulses Assessment 81-year-old with history of BPH, CHF, atrial fibrillation on ELIQUIS, hypertension, peripheral vascular disease presenting with complaints of UTI after failing outpatient oral antibiotics. He is currently on IV ceftaz addendum for presumed Pseudomonas infection. We will continue the same pending cultures. Otherwise patient is stable. Plan Continue ceftazidime Follow urine and blood cultures Continue other home medications Current Medications Sig/Iain Start time Last Medication Dose Route Stop Time Status Admin Acetaminophen 650 MG Q6P PRN 08/07 1400 AC 08/08 PO 0913 Amlodipine Besylate 5 MG DAILY 08/08 1000 AC 08/08 PO 0755 Apixaban 5 MG BID 08/07 2200 AC 08/08 PO 0756 Atorvastatin Calcium 40 MG DAILY 08/08 1000 AC 08/08 PO 0756 Budesonide/ 2 PUF BID 08/07 2200 AC 08/08 Formoterol Fumarate INH 0757 Ceftazidime 1,000 MG IQ8 08/07 1600 AC 08/08 IV 0751 Ceftazidime 2,000 MG ONCE ONE 08/07 1315 DC 08/07 IV 08/07 1316 1400 Docusate Sodium 100 MG BID 08/07 2200 AC 08/08 PO 0756 Gabapentin 300 MG TID 08/07 1623 AC 08/08 PO 0756 Morphine Sulfate 2 MG Q6PRN PRN 08/07 1400 AC IV Oxycodone/ 1 TAB Q6P PRN 08/07 1400 AC Acetaminophen PO Potassium Chloride 20 MEQ DAILY 08/07 1623 AC 08/08 PO 0756 Primidone 50 MG TID 08/07 1624 AC 08/08 PO 0757 Tiotropium [place] 1 PUF DAILY 08/07 1624 DC INH Torsemide 40 MG DAILY 08/07 1624 AC 08/08 PO 0754 Laboratory Tests 08/08 08/07 0730 1411 Chemistry Sodium (137 - 145 mmol/L) 140 Potassium (3.5 - 5.1 mmol/L) 4.4 Chloride (98 - 107 mmol/L) 98 Carbon Dioxide (22 - 30 mmol/L) 32 H Anion Gap (5 - 16) 9 BUN (9 - 20 mg/dL) 23 H Creatinine (0.7 - 1.2 mg/dL) 1.0 Estimated GFR (>60 ml/min) > 60 BUN/Creatinine Ratio (7 - 25 %) 23.0 Lactic Acid Cancelled Hematology CBC w Diff NO MAN DIFF REQ WBC (4.8 - 10.8 /CUMM) 8.9 RBC (4.70 - 6.10 /CUMM) 4.68 L Hgb (14.0 - 18.0 G/DL) 13.3 L Hct (42 - 52 %) 41.2 L MCV (80.0 - 94.0 FL) 88.0 MCH (27.0 - 31.0 PG) 28.5 RDW (11.5 - 14.5 %) 15.9 H Plt Count (130 - 400 /CUMM) 184 MPV (7.4 - 10.4 FL) 9.6 Gran % (42.2 - 75.2 %) 75.8 H Lymphocytes % (20.5 - 51.1 %) 11.4 L Monocytes % (1.7 - 9.3 %) 10.5 H Eosinophils % (0 - 5 %) 2.0 Basophils % (0.0 - 2.0 %) 0.3 Absolute Granulocytes (1.4 - 6.5 /CUMM) 6.7 H Absolute Lymphocytes (1.2 - 3.4 /CUMM) 1.0 L Absolute Monocytes (0.10 - 0.60 /CUMM) 0.9 H Absolute Eosinophils (0.0 - 0.7 /CUMM) 0.2 Absolute Basophils (0.0 - 0.2 /CUMM) 0 PUBS MCHC (33.0 - 37.0 G/DL) 32.3 L 08/07 08/07 1230 1135 Chemistry Sodium (137 - 145 mmol/L) 140 Potassium (3.5 - 5.1 mmol/L) 4.0 Chloride (98 - 107 mmol/L) 98 Carbon Dioxide (22 - 30 mmol/L) 31 H Anion Gap (5 - 16) 11 BUN (9 - 20 mg/dL) 22 H Creatinine (0.7 - 1.2 mg/dL) 0.9 Estimated GFR (>60 ml/min) > 60 BUN/Creatinine Ratio (7 - 25 %) 24.4 Glucose (65 - 99 mg/dL) 105 H Lactic Acid (0.7 - 2.1 mmol/L) 1.7 Calcium (8.4 - 10.2 mg/dL) 9.6 Total Bilirubin (0.2 - 1.3 mg/dL) 0.4 AST (17 - 59 U/L) 30 ALT (21 - 72 U/L) 41 Alkaline Phosphatase (< 127 U/L) 126 Total Protein (6.3 - 8.2 g/dL) 7.4 Albumin (3.5 - 5.0 g/dL) 4.5 Globulin (1.9 - 4.2 gm/dL) 2.9 Albumin/Globulin Ratio (1.1 - 2.2 %) 1.6 Hematology CBC w Diff NO MAN DIFF REQ WBC (4.8 - 10.8 /CUMM) 9.6 RBC (4.70 - 6.10 /CUMM) 4.89 Hgb (14.0 - 18.0 G/DL) 14.1 Hct (42 - 52 %) 43.1 MCV (80.0 - 94.0 FL) 88.0 MCH (27.0 - 31.0 PG) 28.8 RDW (11.5 - 14.5 %) 15.6 H Plt Count (130 - 400 /CUMM) 191 MPV (7.4 - 10.4 FL) 9.2 Gran % (42.2 - 75.2 %) 74.6 Lymphocytes % (20.5 - 51.1 %) 13.4 L Monocytes % (1.7 - 9.3 %) 9.8 H Eosinophils % (0 - 5 %) 1.7 Basophils % (0.0 - 2.0 %) 0.5 Absolute Granulocytes (1.4 - 6.5 /CUMM) 7.2 H Absolute Lymphocytes (1.2 - 3.4 /CUMM) 1.3 Absolute Monocytes (0.10 - 0.60 /CUMM) 0.9 H Absolute Eosinophils (0.0 - 0.7 /CUMM) 0.2 Absolute Basophils (0.0 - 0.2 /CUMM) 0 PUBS MCHC (33.0 - 37.0 G/DL) 32.7 L Urines Urinalysis LIGHT H Urine Color (YEL,AMB,STR) YEL Urine Clarity (CLEAR) HAZY H Urine pH (5.0 - 8.0) 7.0 Ur Specific [place] (1.001 - 1.035) 1.010 Urine Protein (NEG,<30 MG/DL) TRACE H Urine Ketones (NEG) NEG Urine Nitrite (NEG) NEG Urine Bilirubin (NEG) NEG Urine Urobilinogen (0.1 - 1.0 EU/dl) 0.2 Ur Leukocyte Esterase (NEG) MOD H Ur Microscopic SEDIMENT EXAMINED Urine RBC (0 - 5 /HPF) RARE Urine WBC (0 - 2 /HPF) 25-50 H Ur Epithelial Cells (NONE,FEW) RARE Urine Bacteria (NEG/NONE) RARE H Urine Mucus (FEW,NONE) RARE Urine Hemoglobin (NEG) NEG Urine Glucose (N MG/DL) NEG Vital Signs Date Time Temp Pulse Resp B/P B/P Pulse O2 O2 Flow FiO2 Mean Ox Delivery Rate 08/08 0755 130/70 08/08 0700 97.2 72 20 132/72 93 Room Air 08/07 2242 98.5 80 18 140/70 93 Room Air 08/07 1920 Room Air Room Air 08/07 1705 97.9 68 20 122/80 92 Room Air 08/07 1627 97.2 80 18 179/89 96 Room Air 08/07 1247 66 18 159/99 92 Room Air 08/07 1235 Room Air 08/07 0954 97.0 76 16 128/75 94 Room Air
[2016-08-08 14:14] VITALS: BP 130/77
[2016-08-08 22:23] VITALS: BP 128/72
[2016-08-09 06:46] VITALS: BP 130/70
--- NOTE | 2016-08-09 08:45 | PN- Housestaff ---
Subjective Follow-up For: vre uti Subjective: Saw pt at bedside this AM. He has been informed that he is goning home today. He has no complaints. Denies dysuria, car/n/v/diarrhea. Plan for DC today. Will speak with attending regarding PICC and IV abx vs PO abx. Review of Systems Constitutional: Denies: chills, fever, weakness. EENTM: Denies: double vision. Cardiovascular: Denies: chest pain. Respiratory: Denies: cough, short of breath. Gastrointestinal: Denies: constipation, diarrhea. Genitourinary: Denies: dysuria, frequency, hematuria. Musculoskeletal: Reports: no symptoms. Objective Last 24 Hrs of Vital Signs/I&O Vital Signs Date Time Temp Pulse Resp B/P B/P Pulse O2 O2 Flow FiO2 Mean Ox Delivery Rate 08/09 0828 98.1 89 24 130/56 08/09 0646 98.3 67 20 130/70 93 Room Air 08/08 2223 97.8 68 20 128/72 96 Room Air 08/08 1414 98.0 70 20 130/77 98 Intake & Output 08/09 1600 08/09 0800 08/09 0000 Intake Total 200 300 Output Total 300 Balance -100 300 Intake, IV 20 Intake, Oral 200 280 Number 0 Bowel Movements Output, Urine 300 Physical Exam General Appearance: Alert, Oriented X3, Cooperative, No Acute Distress Skin: No Significant Lesion HEENT: Atraumatic, PERRLA, EOMI, Mucous Membr. moist/pink Neck: Supple Cardiovascular: Regular Rate, Normal S1, Normal S2 Lungs: Normal Air Movement Abdomen: Normal Bowel Sounds, Soft Neurological: Normal Gait, Normal Speech Assessment/Plan Assessment: 81-year-old male with past medical history of BPH, dCHF, atrial fibrillation on Eliquis, hypertension, peripheral vascular disease, hyperlipidemia, neuropathy, chronic edema, right posterior lobe lung nodule, was sent in by his primary care physician Pavan Higuera MD for UTI requiring IV antibiotics. He is being managed in the general medical floor for the following issues: #Urinary tract infection Patient has a long standing history (1 month) of intermittant urinary tract infections, which has grown Pseudomonas aeruginosa in the past, senstitive to Ceftazidime. This requires IV route of administratration, thus the admission. Continue regular monitoring, and IV abx, pending urine culture. IV Ceftazidime 1gm q8h for now. There is question regarding antibiotic course at this point. He either needs a PICC line for continuation of IV abx or if treated for sufficient duration pt can go without abx. Today he has no dysuria or any urinary symptoms. Pt has remained afebrile. Atrial fibrillation, rate comtrolled Continue home medication of betablocker and Eliquis #HFpEF, dCHF Continue cardiac meds from home as noted #HLD Continue statin #HTN Continue betablocker and home meds of trsemide #Essential tremor, controlled Continue Primidone #Neuropathy Continue Gabapentin #BPH Continue Finasteride, and Tamsulosin follow up pt eval for discharge recommendations #Diet: Heart healthy #DVT ppx: Eliquis #Code status: Full code Problem List: 1. Neck pain Pain Ratin Pain Location: none Pain Goal: Remain pain free Pain Plan: none Tomorrow's Labs & Rationales: none DVT/Prophylaxis: pharmacological
--- NOTE | 2016-08-09 09:50 | PN- Att Addend ---
Attending Addendum Attending Brief Note Patient reports feeling better this morning. General Appearance: Alert, No Acute Distress Skin: Grossly normal HEENT: PEERLA Neck: Supple, No JVD Cardiovascular: Irregular rhythm Abdomen: Normal Bowel Sounds, Soft, No Tenderness Neurological: Normal Speech, Strength at 5/5 X4 Ext, Cranial Nerves 3-12 NL, Reflexes 2+ Extremities: No Clubbing, No Cyanosis, No Edema Vascular: Normal Pulses Assessment 81-year-old with history of BPH, CHF, atrial fibrillation on ELIQUIS, hypertension, peripheral vascular disease presenting with complaints of UTI after failing outpatient oral antibiotics. He is currently on IV ceftaz for presumed Pseudomonas infection. We will continue the same pending cultures. Otherwise patient is stable. Plan Continue ceftazidime Follow urine and blood cultures Continue other home medications Get PT evaluation Current Medications Sig/Iain Start time Last Medication Dose Route Stop Time Status Admin Acetaminophen 650 MG Q6P PRN 08/07 1400 AC 08/08 PO 0913 Amlodipine Besylate 5 MG DAILY 08/08 1000 AC 08/09 PO 0828 Apixaban 5 MG BID 08/07 2200 AC 08/09 PO 0827 Atorvastatin Calcium 40 MG DAILY 08/08 1000 AC 08/09 PO 0827 Budesonide/ 2 PUF BID 08/07 2200 AC 08/09 Formoterol Fumarate INH 0828 Ceftazidime 1,000 MG IQ8 08/07 1600 AC 08/09 IV 0827 Docusate Sodium 100 MG BID 08/07 2200 AC 08/09 PO 0827 Gabapentin 300 MG TID 08/07 1623 AC 08/09 PO 0827 Morphine Sulfate 2 MG Q6PRN PRN 08/07 1400 AC IV Oxycodone/ 1 TAB Q6P PRN 08/07 1400 AC Acetaminophen PO Potassium Chloride 20 MEQ DAILY 08/07 1623 AC 08/09 PO 0827 Primidone 50 MG TID 08/07 1624 AC 08/09 PO 0827 Torsemide 40 MG DAILY 08/07 1624 AC 08/09 PO 0827 Vital Signs Date Time Temp Pulse Resp B/P B/P Pulse O2 O2 Flow FiO2 Mean Ox Delivery Rate 08/10 0728 98.1 89 24 130/56 08/09 0646 98.3 67 20 130/70 93 Room Air 08/08 2223 97.8 68 20 128/72 96 Room Air 08/08 1414 98.0 70 20 130/77 98
[2016-08-09 14:07] VITALS: BP 130/70
[2016-08-09 21:59] VITALS: BP 126/73
[2016-08-10 06:20] VITALS: BP 114/70
--- NOTE | 2016-08-10 07:06 | PN- Housestaff ---
Subjective Follow-up For: Urinary tract infection, due to Pseudomonas aeruginosa Complaints: no complaints Subjective: I followed up and examined the patient today. He is resting comfortably in his recliner, is not in distress, does not offer any complaints. His vitals have remained stable, no overnight events otherwise. He is receiving IV antibiotics ceftazidime, D3 today. Review of Systems Constitutional: Reports: no symptoms. Objective Last 24 Hrs of Vital Signs/I&O Vital Signs Date Time Temp Pulse Resp B/P B/P Pulse O2 O2 Flow FiO2 Mean Ox Delivery Rate 08/10 0852 74 140/82 08/10 0620 98.7 74 20 114/70 94 Room Air 08/09 2159 98.0 80 20 126/73 96 Room Air 08/09 1407 98.2 90 20 130/70 96 Intake & Output 08/10 1600 08/10 0800 08/10 0000 Intake Total 400 480 Output Total Balance 400 480 Intake, Oral 400 480 Physical Exam General Appearance: Alert, Oriented X3, Cooperative, No Acute Distress, obese Other Physical Findings: Skin No Rashes, No Breakdown, No Significant Lesion Skin Temp/Moisture Exam: Warm/Dry HEENT Atraumatic, PERRLA Neck Supple, No JVD, No thryomegaly Lymphatic Axillary nl, Cervical nl Cardiovascular Regular Rate, No Murmurs Lungs Clear to Auscultation, Normal Air Movement Abdomen Normal Bowel Sounds, Soft, No Tenderness Neurological Normal speech, grossly intact, gait baseline with walker Extremities No Clubbing, No Cyanosis, No Edema, Normal Pulses, No Tenderness/ Swelling Vascular Normal Pulses, Pulses Symmetrical Current Medications: Current Medications Sig/Iain Start time Last Medication Dose Route Stop Time Status Admin Acetaminophen 650 MG Q6P PRN 08/07 1400 AC 08/08 PO 0913 Amlodipine Besylate 5 MG DAILY 08/08 1000 AC 08/10 PO 0852 Apixaban 5 MG BID 08/07 2200 AC 08/10 PO 0852 Atorvastatin Calcium 40 MG DAILY 08/08 1000 AC 08/10 PO 0852 Budesonide/ 2 PUF BID 08/07 2199 AC 08/10 Formoterol Fumarate INH 0852 Ceftazidime 1,000 MG IQ8 08/07 1600 AC 08/10 IV 0848 Docusate Sodium 100 MG BID 08/070 AC 08/10 PO 0852 Gabapentin 300 MG TID 08/07 1623 AC 08/10 PO 0852 Guaifenesin/ 10 ML ONCE ONE 08/09 2230 DC 08/09 Dextromethorphan PO 08/09 2231 2253 Morphine Sulfate 2 MG Q6PRN PRN 08/07 1400 AC IV Oxycodone/ 1 TAB Q6P PRN 08/07 1400 AC Acetaminophen PO Patient Medication 1 ED .STK-MED ONE 08/09 1337 DC Teaching ED 08/09 1338 Potassium Chloride 20 MEQ DAILY 08/07 1623 AC 08/10 PO 0852 Primidone 50 MG TID 08/07 1624 AC 08/10 PO 0852 Torsemide 40 MG DAILY 08/07 1624 AC 08/10 PO 0852 Assessment/Plan Assessment: 81-year-old male with past medical history of BPH, dCHF, atrial fibrillation on Eliquis, hypertension, peripheral vascular disease, hyperlipidemia, neuropathy, chronic edema, right posterior lobe lung nodule, was sent in by his primary care physician Pavan Higuera MD for UTI requiring IV antibiotics. He is being managed in the general medical floor for the following issues: #Urinary tract infection Patient has a long standing history (1 month) of intermittant urinary tract infections, which has grown Pseudomonas aeruginosa in the past, senstitive to Ceftazidime. This requires IV route of administratration, thus the admission. Continue regular monitoring, and IV abx, pending urine culture. IV Ceftazidime 1gm q8h for now. * There is question regarding antibiotic course at this point. He either needs a PICC line/new IV line and leaves to continue IV abx or if treated for sufficient duration pt can go without abx alter. Today he has no dysuria or any urinary symptoms. Pt has remained afebrile. * Infectious disease service requested. Awaiting his recommendations. Atrial fibrillation, rate comtrolled Continue home medication of betablocker and Eliquis #HFpEF, dCHF Continue cardiac meds from home as noted #HLD Continue statin #HTN Continue betablocker and home meds of trsemide #Essential tremor, controlled Continue Primidone #Neuropathy Continue Gabapentin #BPH Continue Finasteride, and Tamsulosin follow up pt eval for discharge recommendations #Diet: Heart healthy #DVT ppx: Eliquis #Code status: Full code Problem List: 1. UTI (urinary tract infection) Pain Ratin Pain Location: - Pain Goal: Pain 4 or less Pain Plan: prn Tomorrow's Labs & Rationales: -
--- NOTE | 2016-08-10 09:18 | PN- Att Addend ---
Attending Addendum Attending Brief Note Patient reports feeling better this morning. Denies burning with micturition. General Appearance: Alert, No Acute Distress Skin: Grossly normal HEENT: PEERLA Neck: Supple, No JVD Cardiovascular: Irregular rhythm Abdomen: Normal Bowel Sounds, Soft, No Tenderness Neurological: Normal Speech, Strength at 5/5 X4 Ext, Cranial Nerves 3-12 NL, Reflexes 2+ Extremities: No Clubbing, No Cyanosis, No Edema Vascular: Normal Pulses Assessment 81-year-old with history of BPH, CHF, atrial fibrillation on ELIQUIS, hypertension, peripheral vascular disease presenting with complaints of UTI after failing outpatient treatment . He is currently on IV ceftaz and urine culture positive for Pseudomonas. Unfortunately Pseudomonas UTI only sensitive to IV antibiotics. We will get an ID consult to help narrow down to the right antibiotic. Plan ID consult Continue ceftaz for now Continue other home meds Current Medications Sig/Iain Start time Last Medication Dose Route Stop Time Status Admin Acetaminophen 650 MG Q6P PRN 08/07 1400 AC 08/08 PO 0913 Amlodipine Besylate 5 MG DAILY 08/08 1000 AC 08/10 PO 0852 Apixaban 5 MG BID 08/07 2200 AC 08/10 PO 0852 Atorvastatin Calcium 40 MG DAILY 08/08 1000 AC 08/10 PO 0852 Budesonide/ 2 PUF BID 08/07 2200 AC 08/10 Formoterol Fumarate INH 0852 Ceftazidime 1,000 MG IQ8 08/07 1600 AC 08/10 IV 0848 Docusate Sodium 100 MG BID 08/07 2200 AC 08/10 PO 0852 Gabapentin 300 MG TID 08/07 1623 AC 08/10 PO 0852 Guaifenesin/ 10 ML ONCE ONE 08/09 2230 DC 08/09 Dextromethorphan PO 08/09 2231 2253 Morphine Sulfate 2 MG Q6PRN PRN 08/07 1400 AC IV Oxycodone/ 1 TAB Q6P PRN 08/07 1400 AC Acetaminophen PO Patient Medication 1 ED .STK-MED ONE 08/09 1337 DC Teaching ED 08/09 1338 Potassium Chloride 20 MEQ DAILY 08/07 1623 AC 08/10 PO 0852 Primidone 50 MG TID 08/07 1624 AC 08/10 PO 0852 Torsemide 40 MG DAILY 08/07 1624 AC 08/10 PO 0852 Vital Signs Date Time Temp Pulse Resp B/P B/P Pulse O2 O2 Flow FiO2 Mean Ox Delivery Rate 08/10 0852 74 140/82 08/10 0620 98.7 74 20 114/70 94 Room Air 08/09 2159 98.0 80 20 126/73 96 Room Air 08/09 1407 98.2 90 20 130/70 96
[2016-08-10 14:23] VITALS: BP 125/70
--- NOTE | 2016-08-10 16:07 | Patient Discharge Instructions ---
Discharge Instructions General Discharge Information You were seen/treated for: Urinary tract infection (UTI) Special Instructions: Please follow-up with your primary care physician within 7-10 days of discharge. Please follow up with Urologist Dr Tom Choudhary within ten days of discharge. Please return to emergency room if symptoms worsen. Diet Continue normal diet: Yes Recommended Diet: Heart Healthy Activity Full Activity/No Limits: No Activity Self Limited: Yes (requires walker) Acute Coronary Syndrome Inclusion Criteria At DC or during hospital stay patient has or had the following: ACS DIAGNOSIS No Discharge Core Measures Meds if any: Prescribed or Continued at Discharge Meds if any: NOT Prescribed or Continued at Discharge Congestive Heart Failure Inclusion Criteria At DC or during hospital stay patient has or had the following: CHF DIAGNOSIS No Discharge Core Measures Meds if any: Prescribed or Continued at Discharge Meds if any: NOT Prescribed or Continued at Discharge Cerebrovascular accident Inclusion Criteria At DC or during hospital stay patient has or had the following: CVA/TIA Diagnosis No Discharge Core Measures Meds if any: Prescribed or Continued at Discharge Meds if any: NOT Prescribed or Continued at Discharge Venous thromboembolism Inclusion Criteria VTE Diagnosis No VTE Type NONE VTE Confirmed by (Test) NONE Discharge Core Measures - Per Current guidelines, there needs to be overlap - treatment for the first 5 days of Warfarin therapy. - If discharged on Warfarin prior to 5 days of - overlap therapy, the patient will need to be - assessed for post discharge needs including - *Post discharge parental anticoagulation - *Warfarin and/or parental anticoagulation education - *Follow up date to check INR post discharge At least 5 days overlap therapy as Inpatient No Meds if any: Prescribed or Continued at Discharge Note: Overlap Therapy is Warfarin and Anticoagulant Meds if any: NOT Prescribed or Continued at Discharge
--- NOTE | 2016-08-10 16:32 | Cons- Infect Disease ---
General Information and HPI Consulting Request Date of Consult: 08/10/16 Requested By: MACKENZIE SWEENEY MD Reason for Consult: Resistant Pseudomonas UTI Source of Information: patient, old records History of Present Illness: This is an 81-year-old man with a history of hypertension, peripheral vascular disease, CHF, atrial fibrillation, maintained on Eliquis, and BPH, with a several month history of dysuria, with repeat urine cultures positive for Pseudomonas resistant to Ciprofloxacin, admitted on August 07 for treatment with intravenous antibiotics. On admission he was afebrile. Laboratory data revealed a white blood cell count of 10,000, BUN/creatinine 22 and 0.9. Urinalysis rare RBC/25-50 WBCs. He was begun on Ceftazidime, which has been continued to the present time. He has been afebrile since admission. He notes resolution of his dysuria and at present feels well with no complaints. Allergies/Medications Allergies: Coded Allergies: sulfamethoxazole (From [facility]RIM) (UNKNOWN 05/13/15) trimethoprim (From [facility]RIM) (UNKNOWN 05/13/15) Home Med List: Acetaminophen (Tylenol) 325 MG TABLET 2 TAB PO Q4 HRS NEEDED PRN PAIN ( Reported) Amlodipine Besylate 5 MG TABLET 5 MG PO DAILY HIGH BLOOD PRESSURE Apixaban (Eliquis) 5 MG TABLET 1 TAB PO BID BLOOD THINNER (Reported) Atorvastatin Calcium (Lipitor) 40 MG TABLET 1 TAB PO DAILY CHOLESTEROL ( Reported) Budesonide/Formoterol Fumarate (Symbicort 160-4.5 Mcg Inhaler) 160 MCG-4.5 MCG/ ACTUATION HFA.AER.AD 2 PUF INH BID BREATHING PROBLEMS (Reported) Cetirizine HCl (Zyrtec) 10 MG TABLET 1 TAB PO DAILY ALLERGIES (Reported) Docusate Sodium (Colace) 100 MG CAPSULE 1 CAP PO BID CONSTIPATION (Reported) Gabapentin 300 MG CAPSULE 1 CAP PO TID (Reported) Potassium Chloride (Klor-Con M20) 20 MEQ TAB.ER.PRT 1 TAB PO DAILY SUPPLEMENT (Reported) Primidone (Mysoline) 50 MG TABLET 1 TAB PO TID UNKNOWN (Reported) Tiotropium [place] (Spiriva) 18 MCG CAP.W.DEV 1 PUF INH DAILY copd Torsemide (Demadex) 20 MG TABLET 2 TAB PO DAILY WATER PILL (Reported) Tramadol HCl 50 MG TABLET 1 TAB PO BID PAIN (Reported) Past History Travel History Traveled to [place] past 21 day No Medical History Blood Transfusion Hx: No Neurological: peripheral neuropathy, TREMORS EENT: NONE Cardiovascular: AFIB, CHF, hypertension, hyperlipidemia, PVD Respiratory: bronchitis, pneumonia Gastrointestinal: constipation Hepatic: NONE Renal: UTI Musculoskeletal: gout Psychiatric: NONE Endocrine: NONE Blood Disorders: anemia Cancer(s): NONE BURIAL VAULT [employer]ER/Reproductive: NONE History of MRSA: No History of VRE: Yes History of CDIFF: No Isolation History: Contact Surgical History Surgical History: hernia repair-inguinal (bilateral), hernia repair-umbilical, LLE SKIN GRAFT, status post cystoscopy and suprapubic cystostomy in the past Family History Relations & Conditions If Any: MOTHER FH: HTN (hypertension) FATHER FH: HTN (hypertension) Psychosocial History Where Do You Live? Extended Care Facility Who Do You Live With? self Services at Home: Home Health Aide, Nursing Primary Language: Armenian Smoking Status: Former Smoker (for 10 yr, 1 pk per week, quit) Functional Ability ADLs Needs Assist: dressing, eating, toileting, bathing. IADLs Needs Assist: shopping, housework, finances, food prep, telephone, transportation, medication admin. Review of Systems Review of Systems All Other Systems: Reviewed and Negative Exam & Diagnostic Data Last 24 Hrs of Vital Signs/I&O Vital Signs Date Time Temp Pulse Resp B/P B/P Pulse O2 O2 Flow FiO2 Mean Ox Delivery Rate 08/10 1423 98.2 60 20 125/70 96 08/10 0852 74 140/82 08/10 0800 Room Air 08/10 0620 98.7 74 20 114/70 94 Room Air 08/09 2159 98.0 80 20 126/73 96 Room Air Intake & Output 08/10 1600 08/10 0800 08/10 0000 Intake Total 490 400 480 Output Total Balance 490 400 480 Intake, IV 10 Intake, Oral 480 400 480 Number 1 Bowel Movements Physical Exam Other Physical Findings: He is awake and alert in no acute distress. He is afebrile. Skin reveals no rash. HEENT exam is negative. Neck is supple with no adenopathy. Lungs are clear. Heart irregular rhythm with a 1/6 systolic ejection murmur. Abdomen is obese, soft, nontender with positive bowel sounds. Back no CVA tenderness. Extremities no cyanosis, clubbing or edema. Neuro is without focality. Last 24 Hours of Lab Results: Laboratory Tests 08/08 0730 Chemistry Sodium (137 - 145 mmol/L) 140 Potassium (3.5 - 5.1 mmol/L) 4.4 Chloride (98 - 107 mmol/L) 98 Carbon Dioxide (22 - 30 mmol/L) 32 H Anion Gap (5 - 16) 9 BUN (9 - 20 mg/dL) 23 H Creatinine (0.7 - 1.2 mg/dL) 1.0 Estimated GFR (>60 ml/min) > 60 BUN/Creatinine Ratio (7 - 25 %) 23.0 Hematology CBC w Diff NO MAN DIFF REQ WBC (4.8 - 10.8 /CUMM) 8.9 RBC (4.70 - 6.10 /CUMM) 4.68 L Hgb (14.0 - 18.0 G/DL) 13.3 L Hct (42 - 52 %) 41.2 L MCV (80.0 - 94.0 FL) 88.0 MCH (27.0 - 31.0 PG) 28.5 RDW (11.5 - 14.5 %) 15.9 H Plt Count (130 - 400 /CUMM) 184 MPV (7.4 - 10.4 FL) 9.6 Gran % (42.2 - 75.2 %) 75.8 H Lymphocytes % (20.5 - 51.1 %) 11.4 L Monocytes % (1.7 - 9.3 %) 10.5 H Eosinophils % (0 - 5 %) 2.0 Basophils % (0.0 - 2.0 %) 0.3 Absolute Granulocytes (1.4 - 6.5 /CUMM) 6.7 H Absolute Lymphocytes (1.2 - 3.4 /CUMM) 1.0 L Absolute Monocytes (0.10 - 0.60 /CUMM) 0.9 H Absolute Eosinophils (0.0 - 0.7 /CUMM) 0.2 Absolute Basophils (0.0 - 0.2 /CUMM) 0 PUBS MCHC (33.0 - 37.0 G/DL) 32.3 L Last 24 Hours of Mc Results: Blood cultures August 07 negative Urine culture August 07 greater than 100,000 colonies of Pseudomonas sensitive to Ceftazidime, Meropenem and Gentamicin and resistant to Ciprofloxacin Assessment/Plan Assessment/Plan Impression: This is an 81-year-old man with a history of hypertension, peripheral vascular disease, CHF, atrial fibrillation and BPH with a several month history of dysuria, presumably secondary to a resistant Pseudomonas urinary tract infection , admitted on August 07 for treatment with IV antibiotics. His symptoms appear to have resolved on Ceftazidime, which can be continued to complete a seven-day course of treatment. He does have a history of BPH and has undergone cystoscopy and suprapubic cystostomy in the past and Urology reevaluation would be helpful. Suggestion: 1. Renal ultrasound 2. Urology evaluation 3. Continue Ceftazidime to complete a 7 day course of treatment Consult Acknowledgment - Thank you for your consult request.
[2016-08-10 22:24] VITALS: BP 124/70
--- NOTE | 2016-08-11 05:36 | NUR ---
SHIFT NOTE. PT SLEPT IN BED FOR HALF OF THE NIGHT, THEN IN CHAIR WITH BLE ELEVATED FOR THE LATER HALF. AOX3. DENIED PAIN. OOB TO TOILET X2 WITH SUPERVISION. DENIED ANY URINARY FREQUENCY, BURNING, FOUL ODOR, OR DISCOLORED URINE. DENIED SOB. BARRIER CREAM APPLIED TO SLIT IN SKIN ON COCCYX, PT ENCOURAGED TO CHANGE POSITIONS FREQUENTLY TO PREVENT FURTHER SKIN BREAKDOWN. CONTINUED ON IV ABX. WILL CONTINUE TO MONITOR.
--- NOTE | 2016-08-11 06:36 | ULTRASOUND REPORT ---
EXAMINATION: US RETROPERITONEAL COMPLETE (RENAL) CLINICAL INFORMATION: This is an 81-year-old male with a history of urinary tract infection. Abdominal pain. Resistant bacterial UTI. History of BPH.. COMPARISON: None TECHNIQUE: Real-time imaging of the kidneys and bladder. FINDINGS: RIGHT KIDNEY: 10.4 x 6.9 x 6.4 cm (SAG x AP x TRV). The kidney is normal in size, contour, and echogenicity. Renal cortical thickness is normal. No calculi or focal parenchymal lesions. No hydronephrosis. LEFT KIDNEY: 11.7 x 6.5 x 4.9 cm (SAG x AP x TRV). The kidney is normal in size, contour, and echogenicity. Renal cortical thickness is normal. No calculi or focal parenchymal lesions. No hydronephrosis. BLADDER: Well-distended and normal. Bilateral ureteral jets are not demonstrated. IMPRESSION: Normal study.
[2016-08-11 07:08] VITALS: BP 130/70
--- NOTE | 2016-08-11 07:33 | PN- Housestaff ---
Subjective Follow-up For: Urinary tract infection, due to Pseudomonas aeruginosa Complaints: no complaints Subjective: I followed up and examined the patient today. He is resting comfortably in his recliner, not in distress, does not offer any complaints. His vitals have remained stable, no overnight events. He is receiving IV antibiotics ceftazidime, Day 4 today. Review of Systems Constitutional: Reports: no symptoms. Objective Last 24 Hrs of Vital Signs/I&O Vital Signs Date Time Temp Pulse Resp B/P B/P Pulse O2 O2 Flow FiO2 Mean Ox Delivery Rate 08/11 1028 Room Air Room Air 08/11 1015 Room Air Room Air 08/11 0811 58 130/70 08/11 0708 97.5 58 20 130/70 94 Room Air 08/10 2224 97.3 73 20 124/70 93 Room Air 08/10 1423 98.2 60 20 125/70 96 Intake & Output 08/11 1600 08/11 0800 08/11 0000 Intake Total 252 480 Output Total 500 Balance -248 480 Intake, IV 12 Intake, Oral 240 480 Output, Urine 500 Physical Exam General Appearance: Alert, Oriented X3, Cooperative, No Acute Distress Other Physical Findings: Skin No Rashes, No Breakdown, No Significant Lesion Skin Temp/Moisture Exam: Warm/Dry HEENT Atraumatic, PERRLA Neck Supple, No JVD, No thryomegaly Lymphatic Axillary nl, Cervical nl Cardiovascular Regular Rate, No Murmurs Lungs Clear to Auscultation, Normal Air Movement Abdomen Normal Bowel Sounds, Soft, No Tenderness Neurological Normal speech, grossly intact, gait baseline with walker Extremities No Clubbing, No Cyanosis, No Edema, Normal Pulses, No Tenderness/ Swelling Vascular Normal Pulses, Pulses Symmetrical Current Medications: Current Medications Sig/Iain Start time Last Medication Dose Route Stop Time Status Admin Acetaminophen 650 MG Q6P PRN 08/07 1400 AC 08/08 PO 0913 Amlodipine Besylate 5 MG DAILY 08/08 1000 AC 08/11 PO 0811 Apixaban 5 MG BID 08/07 2199 AC 08/11 PO 0811 Atorvastatin Calcium 40 MG DAILY 08/08 1000 AC 08/11 PO 0811 Budesonide/ 2 PUF BID 08/07 2200 AC 08/11 Formoterol Fumarate INH 0811 Ceftazidime 1,000 MG IQ8 08/07 1600 AC 08/11 IV 0812 Docusate Sodium 100 MG BID 08/07 2200 AC 08/11 PO 0811 Gabapentin 300 MG TID 08/07 1623 AC 08/11 PO 0811 Guaifenesin/ 10 ML Q6PRN PRN 08/10 1030 AC 08/10 Dextromethorphan PO 1032 Morphine Sulfate 2 MG Q6PRN PRN 08/07 1400 AC IV Oxycodone/ 1 TAB Q6P PRN 08/07 1400 AC Acetaminophen PO Potassium Chloride 20 MEQ DAILY 08/07 1623 AC 08/11 PO 0811 Primidone 50 MG TID 08/07 1624 AC 08/11 PO 0936 Torsemide 40 MG DAILY 08/07 1624 AC 08/11 PO 0811 Assessment/Plan Assessment: 81-year-old male with past medical history of BPH, diastolic congestive heart failure, atrial fibrillation on Eliquis, hypertension, peripheral vascular disease, hyperlipidemia, neuropathy, chronic edema, right posterior lobe lung nodule, was sent in by his primary care physician Pavan Higuera MD, for UTI requiring IV antibiotics. He is being managed in the general medical floor for the following issues: #Urinary tract infection Patient has a history of multiple episodes of urinary tract infection, growing Pseudomonas aeruginosa, which is sensitive to Fortaz and resistant to ciprofloxacin. He received 4 days of IV antibiotic ceftazidime and discherged to [facility] for completion of 7-day treatement course. The dose is 1 g of ceftazidime and 50 mL of D5W given intravenously over 30 minutes every 8 hours for next three days. The ocurrence of recurrent UTI in a male with PMH of BPH, prompted further evaluation with renal imaging, which was normal. ID specialist was consulted and recommended finishing the course of IV fortaz. Patient was also set up to follow up with Dr. Choudhary as an outpatient for complicated UTI. Other issues, not actively managed during this admission: #Atrial fibrillation, rate controlled Continue home medication of betablocker and Eliquis #HFpEF, dCHF Continue cardiac meds from home as noted #HLD Continue statin #HTN Continue betablocker and home meds of trsemide #Essential tremor, controlled Continue Primidone #Neuropathy Continue Gabapentin #BPH Continue Finasteride, and Tamsulosin #Follow up pt eval for discharge recommendations. #Diet: Heart healthy #DVT ppx: Eliquis #Code status: Full code Problem List: 1. UTI (urinary tract infection) Pain Ratin Pain Location: - Pain Goal: Pain 4 or less Pain Plan: prn Tomorrow's Labs & Rationales: -
--- NOTE | 2016-08-11 08:53 | PN- Att Addend ---
Attending Addendum Attending Brief Note Patient reports feeling better this morning. Denies burning with micturition. General Appearance: Alert, No Acute Distress Skin: Grossly normal HEENT: PEERLA Neck: Supple, No JVD Cardiovascular: Irregular rhythm Abdomen: Normal Bowel Sounds, Soft, No Tenderness Neurological: Normal Speech, Strength at 5/5 X4 Ext, Cranial Nerves 3-12 NL, Reflexes 2+ Extremities: No Clubbing, No Cyanosis, No Edema Vascular: Normal Pulses Assessment 81-year-old with history of BPH, CHF, atrial fibrillation on ELIQUIS, hypertension, peripheral vascular disease presenting with complaints of UTI after failing outpatient treatment . He is currently on IV ceftaz and urine culture positive for Pseudomonas. Unfortunately Pseudomonas UTI only sensitive to IV antibiotics. USD kidney negative. 7 days of IV antibiotics in total. We'll discuss with shoe parts caser to set this up at home if possible. Plan Continue ceftaz for 7 days Discuss with shoe parts caser regarding options for discharge on IV antibiotics. Outpatient urology follow-up. Continue other home meds Current Medications Sig/Iain Start time Last Medication Dose Route Stop Time Status Admin Acetaminophen 650 MG Q6P PRN 08/07 1400 AC 08/08 PO 0913 Amlodipine Besylate 5 MG DAILY 08/08 1000 AC 08/11 PO 0811 Apixaban 5 MG BID 08/07 2200 AC 08/11 PO 0811 Atorvastatin Calcium 40 MG DAILY 08/08 1000 AC 08/11 PO 0811 Budesonide/ 2 PUF BID 08/07 2200 AC 08/11 Formoterol Fumarate INH 0811 Ceftazidime 1,000 MG IQ8 08/07 1600 AC 08/11 IV 0812 Docusate Sodium 100 MG BID 08/07 2200 AC 08/11 PO 0811 Gabapentin 300 MG TID 08/07 1623 AC 08/11 PO 0811 Guaifenesin/ 10 ML Q6PRN PRN 08/10 1030 AC 08/10 Dextromethorphan PO 1032 Morphine Sulfate 2 MG Q6PRN PRN 08/07 1400 AC IV Oxycodone/ 1 TAB Q6P PRN 08/07 1400 AC Acetaminophen PO Potassium Chloride 20 MEQ DAILY 08/07 1623 AC 08/11 PO 0811 Primidone 50 MG TID 08/07 1624 AC 08/10 PO 2132 Torsemide 40 MG DAILY 08/07 1624 AC 08/11 PO 0811 Vital Signs Date Time Temp Pulse Resp B/P B/P Pulse O2 O2 Flow FiO2 Mean Ox Delivery Rate 08/11 0811 58 130/70 08/11 0708 97.5 58 20 130/70 94 Room Air 08/10 2224 97.3 73 20 124/70 93 Room Air 08/10 1423 98.2 60 20 125/70 96
[2016-08-11] MEDS ORDERED: CEFTAZIDIME1 G2 IV (09:07)
--- NOTE | 2016-08-11 10:44 | Discharge Summary ---
Visit Information Visit Dates Admission Date: 08/07/16 Discharge Date: 08/11/16 Hospital Course Course Attending Physician: MACKENZIE SWEENEY MD Primary Care Physician: CATRACHITA RIVERA MD Hospital Course: 81-year-old male with past medical history of BPH, diastolic congestive heart failure, atrial fibrillation on Eliquis, hypertension, peripheral vascular disease, hyperlipidemia, neuropathy, chronic edema, right posterior lobe lung nodule, was sent in by his primary care physician Catrachita Rivera MD, for UTI requiring IV antibiotics. He was managed in the general medical floor for the following issues: #Urinary tract infection Patient has a history of multiple episodes of urinary tract infection, growing Pseudomonas aeruginosa, which is sensitive to Fortaz and resistant to ciprofloxacin. He received 4 days of IV antibiotic ceftazidime and discherged to [facility] for completion of 7-day treatement course. The dose is 1 g of ceftazidime and 50 mL of D5W given intravenously over 30 minutes every 8 hours for next three days. The ocurrence of recurrent UTI in a man with PMH of BPH, prompted further evaluation with renal imaging, which was normal. ID specialist was consulted and recommended finishing the course of IV fortaz. Patient was also set up to follow up with Dr. Choudhary as an outpatient for complicated UTI. Other issues, not actively managed during this admission: #Atrial fibrillation, rate controlled Continued home medication of beta dieudonne and Eliquis #HFpEF, dCHF Continued cardiac meds from home as noted #HLD Continued statin #HTN Continued betablocker and home meds of trsemide #Essential tremor, controlled Continued Primidone #Neuropathy Continued Gabapentin #BPH Continued Finasteride, and Tamsulosin Complications: None Allergies: Coded Allergies: sulfamethoxazole (From BACTRIM) (UNKNOWN 05/13/15) trimethoprim (From BACTRIM) (UNKNOWN 05/13/15) Pertinent Lab Results: Renal US 08/11/16: IMPRESSION: Normal study. DICTATED BY: SALIMA CARRIZALES MD DATE/TIME DICTATED:08/11/16630 [employer]:TOMI DATE/TIME TRANSCRIBED:08/11/16630 Microbiology Date/Time Procedure - Status Source Growth 08/07 1230 Blood Culture - RES BLOOD 08/07 1135 Urine Culture - COMP URINE ROUT PSEUDOMONAS AERUGINOSA Disposition Summary Disposition Principal Diagnosis: Urinary Tract Infection (UTI) due to Pseudomonas Additional Diagnosis: BPH, dCHF, atrial fibrillation on Eliquis, hypertension, peripheral vascular disease, hyperlipidemia, neuropathy, chronic edema, right posterior lobe lung nodule Discharge Disposition: SNF Discharge Instructions General Discharge Information Code Status: Full Code Patient's Diet: Regular diet Patient's Activity: As tolerated, with walker Follow-Up Instructions/Appts: Please follow-up with your primary care physician within 7-10 days of discharge. Please follow up with Urologist Dr Tom Choudhary within ten days of discharge. Please return to emergency room if symptoms worsen. Medications at Discharge Discharge Medications: Stop taking the following medications: Cetirizine HCl (Zyrtec) 10 MG TABLET ORAL DAILY Continue taking these medications: Atorvastatin Calcium (Lipitor) 40 MG TABLET 1 Tablet ORAL DAILY Comments: Last Taken: 08/11/16 Time: 8 AM Potassium Chloride (Klor-Con M20) 20 MEQ TAB.ER.PRT 1 Tablet ORAL DAILY Comments: Last Taken: 08/11/16 Time: 8 AM Acetaminophen (Tylenol) 325 MG TABLET 2 Tablet ORAL EVERY 4 HOURS NEEDED as needed for PAIN Comments: Last Taken:08/08/16 Time:0900 AM Gabapentin (Gabapentin) 300 MG CAPSULE 1 Capsule ORAL THREE TIMES DAILY Comments: Last Taken: 08/11/16 Time: 8 AM Primidone (Mysoline) 50 MG TABLET 1 Tablet ORAL THREE TIMES DAILY Comments: Last Taken:08/11/16 Time:0800 AM Amlodipine Besylate (Amlodipine Besylate) 5 MG TABLET 5 Milligram ORAL DAILY Days = 30 Comments: Last Taken: 08/11/16 Time: 8 AM Tiotropium [place] (Spiriva) 18 MCG CAP.W.DEV 1 Puff Inhale through mouth DAILY Days = 30 Comments: Last Taken:NOT TAKEN IN HOSPITAL Time: Torsemide (Demadex) 20 MG TABLET 2 Tablet ORAL DAILY Comments: Last Taken: 08/11/16 Time: 8 AM Budesonide/Formoterol Fumarate (Symbicort 160-4.5 Mcg Inhaler) 160 MCG-4.5 MCG/ ACTUATION HFA.AER.AD 2 Puff Inhale through mouth TWICE DAILY Comments: Last Taken: 08/11/16 Time: 8 AM Apixaban (Eliquis) 5 MG TABLET 1 Tablet ORAL TWICE DAILY Comments: Last Taken: 08/11/16 Time: 8 AM Docusate Sodium (Colace) 100 MG CAPSULE 1 Capsule ORAL TWICE DAILY Comments: Last Taken: 08/11/16 Time: 8 AM Tramadol HCl (Tramadol HCl) 50 MG TABLET 1 Tablet ORAL TWICE DAILY Comments: Last Taken: NOT GIVEN AT HOSPITAL Time: Start taking the following new medications: Ceftazidime (Ceftazidime) 1 GRAM VIAL 1,000 Milligram INTRAVEN IV EVERY 8 HOURS Qty = 7 No Refills Instructions: 1 GRAM IN 50ML OF D5W OVER 30 MIN Comments: Last Taken: 08/11/16 Time: 3 PM Copies To: NICOLE HILLS,CATRACHITA Galvin Attending MD Review Statement Documenting Attending: MACKENZIE SWEENEY MD
--- NOTE | 2016-08-11 12:01 | PN- Infect Dx ---
Subjective Subjective: Afebrile without complaints. He has had no dysuria since admission. Objective Last 24 Hrs of Vital Signs/I&O Vital Signs Date Time Temp Pulse Resp B/P B/P Pulse O2 O2 Flow FiO2 Mean Ox Delivery Rate 08/11 1028 Room Air Room Air 08/11 1015 Room Air Room Air 08/11 0811 58 130/70 08/11 0708 97.5 58 20 130/70 94 Room Air 08/10 2224 97.3 73 20 124/70 93 Room Air 08/10 1423 98.2 60 20 125/70 96 Intake & Output 08/11 1600 08/11 0800 08/11 0000 Intake Total 252 480 Output Total 500 Balance -248 480 Intake, IV 12 Intake, Oral 240 480 Output, Urine 500 Physical Exam Other Physical Findings: He appears comfortable in no acute distress Exam without change Results Last 24 Hours of Lab Results: No labs from today Last 24 Hours of Mc Results: Blood cultures 2 August 07 negative Recent Imaging Studies: Renal ultrasound August 10 negative Assessment/Plan Impression: Stable on Ceftazidime now Day 4 of treatment for a lower urinary tract infection secondary to Pseudomonas with resolution of his dysuria with the antibiotics. Suggestion: 1. Urology evaluation 2. Continue Ceftazidime to complete a 7 day course of treatment
[2016-08-11 15:11] VITALS: BP 130/70
--- NOTE | 2016-08-11 15:45 | NUR ---
REPORT GIVEN TO RN AT [facility], READY FOR PT. IV IN PLACE, RN AWARE. #20 RFA PLACED 08/11/16. PT STABLE, VSS, NO PAIN, SKIN INTACT, RA, IND. A/V/OX3. DISTRIBUTION CALLED FOR PT. PT LEAVING WITH FAMILY MEMBER, FAMILY MEMBER HAS PACKET.
== END 2016-08-11 16:19 | DRG 690 ==
LOC: ERH 09:45 → ERHI 13:26 → 2NA 13:26 → ENRESERV 15:53 → ENTRNSPT 16:33 → 2NA 16:45 → CMPTRNSPT 16:52 → 2NA 08-08 21:10 → ENPENDDIS 08-11 14:57 → 2NA 08-11 16:19
PROVIDERS: Physician Assistant Medical; Student in an Organized Health Care Education/Training Program; ADMIT Internal Medicine
DX: N39.0 Urinary tract infection, site not specified (principal); I11.0 Hypertensive heart disease with heart failure; I50.32 Chronic diastolic (congestive) heart failure; I48.2 Chronic atrial fibrillation; G62.9 Polyneuropathy, unspecified; B96.5 Pseudomonas (aeruginosa) (mallei) (pseudomallei) as the cause of diseases classified elsewhere; I73.9 Peripheral vascular disease, unspecified; E78.5 Hyperlipidemia, unspecified; G25.0 Essential tremor; E66.9 Obesity, unspecified; Z68.32 Body mass index [BMI] 32.0-32.9, adult; N40.0 Benign prostatic hyperplasia without lower urinary tract symptoms; R91.1 Solitary pulmonary nodule; Z79.01 Long term (current) use of anticoagulants; Z87.891 Personal history of nicotine dependence
CPT/HCPCS: 2NAP; 76775; 81001; 82436; 87040; 87086; 97116-GO; 97161-GP; J0713; J3490